=== PATIENT | female | born 1945 | race Native Hawaiian/Other Pacific Islander ===

== ENCOUNTER 2020-09-09 15:06 | Outpatient (CLI) | payer OTHER | END 2020-09-09 23:54 | disposition home or self-care (01) | LOC: INF 15:06 | PROVIDERS: ATTEND Internal Medicine | DX: Z23 Encounter for immunization (principal) | CPT/HCPCS: 96372 ==

== ENCOUNTER 2020-10-07 11:10 | Outpatient (CLI) | payer OTHER | END 2020-10-07 21:56 | disposition home or self-care (01) | LOC: INF 11:10 | PROVIDERS: ATTEND Internal Medicine | DX: Z23 Encounter for immunization (principal) | CPT/HCPCS: 96372 ==